=== PATIENT | female | born 1945 | race Caucasian/White ===

== ENCOUNTER 2024-03-02 09:59 | Day surgery (SDC) | payer MEDICARE ==
[2024-02-27 10:39] LABS: BASOPHILS % (AUTO) 0.6 % (0-1); EOSINOPHILS # (AUTO) 0.1 X10'3 (0-0.9); EOSINOPHILS % (AUTO) 1.4 % (0-6); HEMATOCRIT 43.9 % (35.0-45.0); HEMOGLOBIN 14.4 g/dl (12.0-16.0); LYMPHOCYTES % (AUTO) 15.3 % (21-51); MEAN CORPUSCULAR HGB CONC 32.8 g/dL (33.0-36.5); MEAN CORPUSCULAR VOLUME 91.7 FL (78-98); MEAN PLATELET VOLUME 7.6 FL (7.4-10.4); MONOCYTES # (AUTO) 0.6 X10'3 (0-0.9); MONOCYTES % (AUTO) 9.2 % (2-12); NEUTROPHILS # (AUTO) 4.8 X10'3 (1.8-7.7); NEUTROPHILS % (AUTO) 73.5 % (42-75); PLATELET COUNT 181 X10'3 (140-440); RED BLOOD COUNT 4.79 X10'6 (4.20-5.60); WHITE BLOOD COUNT 6.5 X10'3 (4.5-11.0)
[2024-02-27 10:46] LABS: ANION GAP 10 (8-16); BLOOD UREA NITROGEN 17 MG/DL (7-18); BUN/CREATININE RATIO 21.3 (10.0-20.0); CALCIUM 9.5 MG/DL (8.5-10.1); CHLORIDE 99 MMOL/L (99-107); GLUCOSE 102 MG/DL (70-104); SODIUM 135 MMOL/L (135-145); TOTAL CARBON DIOXIDE 26.5 MMOL/L (24-32); eGFR 70 ML/MIN
[2024-02-27 10:51] LABS: APTT 25 SECONDS (22-32); INR 1.1 INR
[2024-03-02] VITALS (10 sets, daily range): BP systolic 89–139; BP diastolic 64–82; PULSE 60–99; RESP 16; TEMP 97.5; O2SAT 96–100
[~2024-03-02] VITALS: Ht 149.9 cm; Wt 56.9 kg
[~2024-03-02 09:59] MED LIST: AMLO1CAP3 PO; ASCO100T12 PO; ASPI-611 PO; ATOR10TA70 PO; HYDR-3964 PO; LEVO88TA2 PO; LORA-269 PO; METF-900 PO; MULT-1085 PO
[2024-03-02] MEDS ORDERED: LEVO50TA8 PO (11:04)
[2024-03-02] MEDS ORDERED: ROSU10TA72 PO (11:04)
[2024-03-02] MEDS ORDERED: METO-395 PO (11:04)
[2024-03-02] MEDS ORDERED: APIX5TAB3 PO (11:04)
[2024-03-02] MEDS ORDERED: AMI200T PO (11:04)
[2024-03-02 11:19] LABS: CHOL/HDL RATIO 1.8 (0.00-4.99); CHOLESTEROL 106 MG/DL (0-200); HDL CHOLESTEROL 59 MG/DL (35-60); LDL CHOLESTEROL 38 MG/DL (50-100); TRIGLYCERIDES 68 MG/DL (20-135)
[2024-03-02] MEDS: MIDAZolam 1mg/ml 10ml vial IV ONE (13:03)
[2024-03-02] MEDS: fentaNYL/PF 50MCG/1 ML 2ML syringe IV ONE (13:04)
[2024-03-02] MEDS: normal saline 1000ml 1,000 ML IV SCH (13:04)
== END 2024-03-02 13:50 | disposition home or self-care (01) ==
LOC: SSTAY O 09:59
PROVIDERS: ATTEND Student in an Organized Health Care Education/Training Program
DX: I48.91 Unspecified atrial fibrillation (principal); I11.0 Hypertensive heart disease with heart failure; I50.9 Heart failure, unspecified; E78.00 Pure hypercholesterolemia, unspecified; E11.9 Type 2 diabetes mellitus without complications; E03.9 Hypothyroidism, unspecified; I49.5 Sick sinus syndrome; Z95.0 Presence of cardiac pacemaker; Z85.3 Personal history of malignant neoplasm of breast; Z79.84 Long term (current) use of oral hypoglycemic drugs; Z79.899 Other long term (current) drug therapy; Z88.0 Allergy status to penicillin; Z88.8 Allergy status to other drugs, medicaments and biological substances
CPT/HCPCS: 36415; 80048; 80061; 82948; 85025; 85610; 85730; 92960; 93005; J2250; J3010; J7030